=== PATIENT | male | born 1945 | race Caucasian/White ===

== ENCOUNTER → 2016-09-16 | Outpatient (CLI) | payer MEDICARE ==
[~2016-09-16] MED LIST: ANTIVERT25 MG PO; BACTRIM DS 8001 TA1 PO; BACTROBAN CREAM15 GM T; CELEXA20 MG PO; CEPHALEXIN500 M1 PO; CETIRIZINE10 MG PO; CITALOPRAM20 MG PO; CRESTOR10 MG PO; GEMCOR600 MG PO; HYDROCODONE BIT1 T11 PO; KEFLEX500 MG PO; LISINOPRIL2.5 MG PO; LOPID600 M1 PO; METFORMIN1000 MG PO; MULTI VITAMIN/M1 TAB PO; Metformin Hydr500 MG PO; NEURONTIN400 MG PO; NORCO 10-325 T1 EACH PO; NORCO 325 MG-51 TAB PO; NORCO 5-325 TA1 EACH PO; NORTRIPTYLINE10 MG PO; SPIRIVA -- 3018 MCG PO; SPIRIVA18 MCG IH; VICODIN 5/500 505 MG PO; VITA #121000 MCG/M PO; VITAMIN D1000 IU PO; VITAMIN D31000 IU PO
== END | disposition home or self-care (01) ==
LOC: RAD 15:57
DX: J20.9 Acute bronchitis, unspecified (principal); J84.10 Pulmonary fibrosis, unspecified; J98.4 Other disorders of lung; R59.0 Localized enlarged lymph nodes; J34.89 Other specified disorders of nose and nasal sinuses

== ENCOUNTER 2017-06-03 09:02 | Emergency (ER) | payer MEDICARE ==
[~2017-06-03] VITALS: Ht 187.9 cm; Wt 102.1 kg
[2017-06-03] MEDS ORDERED: FLOMAX0.4 MG PO (09:11)
[2017-06-03] MEDS ORDERED: NAPROSYN500 MG PO (09:47)
== END 2017-06-03 10:41 | disposition home or self-care (01) ==
LOC: ED 09:02
DX: M25.561 Pain in right knee (principal); R03.0 Elevated blood-pressure reading, without diagnosis of hypertension; E11.621 Type 2 diabetes mellitus with foot ulcer; Z79.899 Other long term (current) drug therapy

== ENCOUNTER 2018-01-29 14:55 | Inpatient (IN) | payer MEDICARE ==
[~2018-01-29] VITALS: Ht 188 cm; Wt 93.9 kg
--- NOTE | ~2018-01-29 | CON ---
[place], [place] REPORT OF CONSULTATION [id number] UNIT #: [id number] ROOM: 410 DOCTOR: DELMIS BERNARD MD BIRTHDATE: [birth year] DOS: 02/02/2018 REASON FOR CONSULTATION: Neutropenic fever. CHIEF COMPLAINT: Fever, chills, cough post-chemotherapy. 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 The patient has been following with Oncology, Dr. Sibley in [place], [place]. He received the first chemotherapy almost a week ago and has been noticing fevers, chills, generalized weakness, cough soreness of mouth. He also reports abdominal pain, occasional nausea. No urinary complaints, his chemotherapy include carboplatin and Taxotere. PAST MEDICAL HISTORY: Significant for 1. COPD, metastatic squamous cell carcinoma diagnosed in November 2017. 2. Coronary artery disease. 3. Diabetes type 2. 4. Obstructive sleep apnea. PAST SURGICAL HISTORY: Include tonsillectomy, removal of a cyst from tongue, which was benign, right-sided CT-guided aspirate biopsy of the right upper lung on 12/13/2017. SOCIAL HISTORY: The patient is , lives at home. Denies alcohol use, no illicit drug use. No tobacco use early as a teenager, 1.5 pack of cigarettes per day, discontinued 2017. Nonalcoholic. No illicit drug use. FAMILY HISTORY: Father at 72 because of prostate, lung cancer. Mother at 80 because of congestive heart failure. CURRENT MEDICATIONS: Include gemfibrozil, albuterol, Cardizem, atorvastatin, Xarelto, gabapentin, Mucinex, intravenous Levaquin, vancomycin and Zosyn. ALLERGIES: No known drug allergies. PHYSICAL EXAMINATION: VITAL SIGNS: Include temperature 98.6, pulse rate 95, respiratory rate 20, blood pressure 111/57. GENERAL: On examination, the patient is alert, oriented x 3, in moderate distress. HEENT: Atraumatic, normocephalic. Oral exam has oropharyngeal erythema, whitish plaque over the tongue concerning for oral thrush. RESPIRATORY: Air entry bilaterally equal. Coarse crackles bilateral lower lungs. ABDOMEN: Diffuse tenderness, mild. No guarding or rigidity. EXTREMITIES: No pedal edema. NEUROLOGIC: Cranial nerves 2-12 grossly intact. LINES: Include peripheral IV lines. [place], [place] REPORT OF CONSULTATION NAME: STANISLAV BURRELL UNIT #: [id number] ROOM: 410 DOCTOR: DELMIS BERNARD MD BIRTHDATE: [birth year] LABORATORY DATA: WBC count was 1.1 yesterday, which is 0.5 today, neutrophils less than 8800. BUN 22, creatinine 0.69, GFR more than 60. Uric acid 6.4. Liver enzymes within normal limits. Urine legionella and strep pneumo antigen pending. Sputum culture shows moderate PMNs budding yeast. IMAGING: CT chest done on 01/30/2018, development of moderate sized right-sided pleural effusion with accompanied area of atelectasis, consolidation in the right lung. CT chest shows worsening of right lower lung changes definitely more compared to 11/2017. Medications include vancomycin, Levaquin, Zosyn. ASSESSMENT: 1. Newly diagnosed squamous cell carcinoma, status post chemotherapy with carboplatin and Taxotere. 2. Post-chemotherapy neutropenia. 3. Pneumonia. 4. Oral candidiasis. PLAN: 1. At this time, continue vancomycin plus Zosyn. Can discontinue Levaquin if urine legionella antigen testing is negative. 2. Would add oral fluconazole considering extensive thrush. The patient is already getting nystatin suspension, can give Magic mouthwash or a phenol spray to take care of the soreness of mouth. 3. At this time, no need add a mold coverage with Voriconazole. 4. Continue with Neupogen. 5. Follow up blood cultures. 6. Pulmonary also on board. Thank you for your consult. Please call for any questions. Jasmine Bernard MD CM:CONSTR:REPORT OF CONSULTATION 1034 02/03/18 0429 interface
--- NOTE | ~2018-01-29 | PR ---
[place], [place] PROGRESS NOTE NAME: STANISLAV BURRELL [facility] #: [id number] UNIT #: [id number] ROOM: 410 DOCTOR: KALEY COLE MDPEPPER BIRTHDATE: [birth year] DOS: 01/31/2018 SUBJECTIVE: The patient is a patient independently seen and examined with epgp-vs-ktro encounter, history was confirmed. Physical examination was performed. Labs will be assessed and managed today was personally completed. Note done by the medical secretary teacher approved. The patient has been noted comfortable at this time, noted with coughing without any sputum expectoration. There were symptoms of acute chest pain reported. He has a CT scan of the chest completed yesterday without contrast. The patient denies symptoms of fever or chills. Denies symptoms of nausea or vomiting. Denies edema or pain of the lower extremities. There were no symptoms of hemoptysis or hematuria. Remaining systems were reviewed that were noted all negative. PHYSICAL EXAMINATION: VITAL SIGNS: Normal temperature, respiratory rate 18, heart rate 102, blood pressure 110/61. The pulse oxygen saturation recorded on 6 liters high flow nasal cannula 99% saturation. HEENT: Shows head was atraumatic. Eyes, no icterus. CARDIOVASCULAR: S1, S2 audible. LUNGS: The patient showed persistent reduced breath sounds in the right lung. Scattered mild expiratory wheezing was present. There were no crackles. ABDOMEN: Soft, nontender. Bowel sounds present. EXTREMITIES: The patient noted without any acute edema. VISIBLE SKIN: No lesions or rashes. CENTRAL NERVOUS SYSTEM: Cranial nerves 2-12 intact. No focal deficit. LABORATORY DATA: CMP done this morning, BUN 36, creatinine normal, glucose 166. AST 46. LDH 560. CBC was done this morning, WBC count normal, hemoglobin 7.3, hematocrit 24.5, platelet count 200,000. Blood culture, no bacterial growth 938. CT scan of the chest that was done yesterday personally reviewed multiple metastatic lesions noted in the lungs with pulmonary nodule different sized mass lesion in the left side as well as a large mass, pleural based noted in the right upper lobe. In addition to that some loculated fluid noted within the area of atelectasis as well. The mass size and metastatic lesion seems to be progressed as compared to a CT scan of 12/25/2017. Loculated right pleural fluid was also seen. The area of atelectasis and infiltration of the right middle lobe cannot be completely excluded. IMPRESSION: 1. The patient who has been noted with current progression of the metastatic cancer malignancy rather squamous cell cancer has received one dose of chemotherapy agent carboplatin and Taxotere from the primary care physician. 2. Acute severe hypoxic respiratory failure. 3. Acute pleural fluid related to possible malignancy; however, related to acute infection can be excluded. 4. Suspected acute pneumonia, currently treated for gram-positive, gram-negative infections. 5. Severe debility secondary to malignancy. [place], [place] PROGRESS NOTE NAME: STANISLAV BURRELL UNIT #: [id number] ROOM: 410 DOCTOR: KALEY COLE MD,PEPPER BIRTHDATE: [birth year] PLAN OF MANAGEMENT: Continuation of current antibiotic, monitor culture results, so far the cultures of the blood has been noted negative. Sputum culture was ordered, which was pending. Continue other therapy, plan of management. Pleural fluid appeared to be more complicated at this time, not amenable for simple thoracentesis. If any intervention needs to be done, certainly CT-guided aspiration would be recommended if necessary. In the meantime, continue patient's current therapy, plan of management and care. Assessment and management discussed with the patient in detail. PEPPER ROCHE MD CM:PNTRANS [id number] PEPPER COLE MD 02/13/18 0949 interface
--- NOTE | ~2018-01-29 | PR ---
[place], [place] PROGRESS NOTE NAME: STANISLAV BURRELL [facility] #: [id number] UNIT #: [id number] ROOM: 410 DOCTOR: MARLEEN BO DO BIRTHDATE: [birth year] DOS: 01/31/2018 SUBJECTIVE: The patient was seen and examined at the bedside. He complains of generalized pain including chest pain and abdominal pain. He reports experiencing a cough productive for yellow and clear sputum. He is also experiencing wheezing, but states that his shortness of breath feels improved. OBJECTIVE: VITAL SIGNS: Show temperature at 98.3 degrees Fahrenheit, heart rate at 102, respiratory rate at 18, blood pressure at 110/60, pulse oximetry at 99% on 6 liters nasal cannula. GENERAL APPEARANCE: The patient was awake, alert, responsive, cooperative and in no acute distress. HEENT: Head is normocephalic and atraumatic. No lesions or ulcerations were noted to the eyes. NECK: Trachea appears midline. HEART: Rate was tachycardic, rhythm was regular. Positive S1 and S2 sounds were heard. No murmurs, rubs or gallops were appreciated. Bilateral lower extremities were without edema. PULMONARY: Rhonchi were auscultated on exam. No wheezing was appreciated. ABDOMEN: Soft and nondistended. The patient complained of mild tenderness with palpation. Bowel sounds were auscultated. EXTREMITIES: Bilateral lower extremities were without edema. No clubbing, cyanosis or erythema was noted. LABORATORY DATA: CBC from today shows white count at 6.9, hemoglobin at 7.3, hematocrit at 24.5, platelets at 200. Chemistries from today show sodium at 137, potassium at 4.9, chloride at 104, bicarbonate at 25, BUN at 36, creatinine at 1.01, glucose at 166, uric acid 6.4, calcium 8.4, phosphorus 2.0, magnesium 2.2, total bilirubin 0.3, AST 46, ALT 26, alkaline phosphatase 107, LDH 560, albumin 2.1. In terms of microbiology, blood cultures obtained on admission were negative for bacterial growth. Sputum cultures are pending. In terms of imaging studies, chest CT without contrast obtained yesterday, 01/30/2018, showed a moderate sized right pleural effusion with atelectasis or consolidation to the right lung. IMPRESSION: 1. Right lower lobe pneumonia. 2. Hyperkalemia, resolved. 3. Acute renal failure, resolved. 4. Hyperglycemia. 5. Hypophosphatemia. 6. Hypermagnesemia. 7. Transaminitis. 8. Severe protein-calorie malnutrition. 9. Normocytic anemia. 10. Metastatic squamous cell carcinoma of the lung. 11. History of chronic obstructive pulmonary disease. 12. Overweight. [place], [place] PROGRESS [facility] [id number] UNIT #: [id number] ROOM: 410 DOCTOR: MARLEEN BO DO BIRTHDATE: [birth year] PLAN OF MANAGEMENT: The patient is currently on IV Levaquin, IV vancomycin and IV Zosyn as well as guaifenesin and bronchodilator therapy. Sputum cultures are pending. Nephrology service is also following the patient for his acute renal failure and hyperkalemia, which by today's laboratory studies are much improved. Supplemental oxygen should be titrated to maintain pulse oximetry at 92% or greater. Pulmonary medicine will continue to follow. Marleen Bo DO PEPPER ROCHE MD CM:PNTRANS [id number] MARLEEN BO DO 01/31/18 1352 interface
--- NOTE | ~2018-01-29 | PR ---
[place], [place] PROGRESS NOTE NAME: STANISLAV BURRELL UNIT #: [id number] ROOM: 410 DOCTOR: PEPPER ORDONEZ MD BIRTHDATE: [birth year] DOS: 02/02/2018 PULMONARY ADDENDUM PROGRESS NOTE SUBJECTIVE: The patient was independently seen and examined in tiny-op-orta encounter, history was confirmed. Physical examination performed. The labs were reviewed. Note done by the medical supply technician was approved as well. The patient remained in the hospital. The patient noted severe sore throat. He has been started on Nystatin swish and swallow medication yesterday for possibility of acute pharyngitis. The patient was noted symptoms of shortness of breath remains unchanged. He has been considering possibility of hospice care. OBJECTIVE: VITAL SIGNS: Normal temperature, respiratory rate 18, heart rate 96, blood pressure 111/55 this morning. The pulse oxygen saturation of the patient recorded as 99% saturation. HEENT: Examination shows head was atraumatic. Eyes: No icterus. NECK: Supple. CARDIOVASCULAR: S1, S2 is audible. LUNGS: Noted decreased breath sounds in the lungs bilaterally. ABDOMEN: Soft, nontender. Bowel sounds present. EXTREMITIES: Without any acute edema. IMPRESSION: 1. The patient with persistent severe acute hypoxic respiratory failure with acute pneumonia with advanced progressive metastatic cancer. The patient has a squamous cell. 2. The patient with pancytopenia related to chemotherapy, currently treated with appropriate medications. LABORATORY DATA: CBC today noted WBC count 0.5, hemoglobin 8.1, and platelet count 124,000. PLAN OF MANAGEMENT: The patient will be started on Cepacol lozenges. Continue antibiotics and bronchodilator therapy. Monitor respiratory status closely. Overall prognosis of the patient remains extremely poor at this time. Other support with hospice discussed with the patient until the patient asks for that. [place], [place] PROGRESS NOTE NAME: STANISLAV BURRELL UNIT #: [id number] ROOM: 410 DOCTOR: PEPPER ORDONEZ MD BIRTHDATE: [birth year] PEPPER ROCHE MD CM:PNTRANS [phone] PEPPER COLE MD 02/13/18 0952 interface
--- NOTE | ~2018-01-29 | PR ---
[place], [place] PROGRESS NOTE NAME: STANISLAV BURRELL UNIT #: [id number] ROOM: 410 DOCTOR: PEPPER ORDONEZ MD BIRTHDATE: [birth year] DOS: 02/03/2018 SUBJECTIVE: The patient was noted comfortable at this time. Stated reduction of the sore throat. He has been noted coughing with purulent sputum expectoration for the patient. Denies symptoms of hemoptysis. There was no chest pain. Pain of the patient which has been noted previously noted well controlled with current pain medical management. The patient remains on neutropenic isolation precautions. OBJECTIVE: VITAL SIGNS: Normal temperature, respiratory rate 19, heart rate 98, blood pressure 109/55. Pulse oxygen saturation on 6 liters nasal canula was 96% saturation. HEENT: Examination shows head was atraumatic. Eyes nonicterus. NECK: Supple. CARDIOVASCULAR: S1, S2 is audible. LUNGS: The patient was noted with decreased breath sounds in the right lung. Scattered crackles. There was no wheezing. ABDOMEN: Soft and nontender. LABORATORY DATA: The BMP this morning was noted normal BUN and creatinine. CBC: WBC count increased to 0.9 with hemoglobin 9.3, platelet count 106,000. Sputum culture previously noted with isolation of yeast. IMPRESSION: 1. The patient who has been currently noted stable at this time, resolving pancytopenia for this patient. Chemotherapy, history of advanced squamous cell cancer of the lung with just 1 chemotherapy administered over a week ago. 2. Acute pneumonia. 3. Sore throat for the patient acute pharyngitis. PLAN OF MANAGEMENT: Continue nystatin swish and swallow, bronchodilators, oxygen supplementation and the antibiotics. Antibiotics of the patient will be adjusted based on the current culture results with continuation of the Zosyn. Discontinue the Levaquin and vancomycin. [place], [place] PROGRESS NOTE NAME: STANISLAV BURRELL UNIT #: [id number] ROOM: 410 DOCTOR: PEPPER ORDONEZ MD BIRTHDATE: [birth year] PEPPER ROCHE MD CM:PNTRANS [id number] PEPPER COLE MD 02/13/18 0953 interface
--- NOTE | ~2018-01-29 | PR ---
[place], [place] PROGRESS NOTE NAME: STANISLAV BURRELL [facility] #: [id number] UNIT #: [id number] ROOM: 410 DOCTOR: MARLEEN BO DO BIRTHDATE: [birth year] DOS: 02/02/2018 SUBJECTIVE: The patient was seen and examined. He was sitting in his chair near the bedside. He continues to endorse numerous complaints which include shortness of breath, cough productive for brown sputum, wheezing, intolerance to cold, chest pain, abdominal pain. He also reports experiencing loose diarrhea and this has been occurring since admission. OBJECTIVE: VITAL SIGNS: Show temperature at 98.6 degrees Fahrenheit, heart rate at 94, respiratory rate at 20, most recent blood pressure at 111/57, pulse oximetry was 100% on high flow nasal cannula at 6 liters. GENERAL APPEARANCE: The patient is awake, alert, responsive, cooperative and in no acute distress. HEENT: Head is normocephalic and atraumatic. No lesions or ulcerations were noted to eyes. NECK: Trachea appears midline. HEART: Regular rate and rhythm are noted. Positive S1 and S2 sounds are heard. No murmurs, rubs or gallops are appreciated. The bilateral lower extremities were without edema. PULMONARY: Lungs with decreased breath sounds. Wheezing and rhonchi were heard on exam. No rales were appreciated. ABDOMEN: Soft and nondistended. There is no tenderness on palpation. Bowel sounds were present. EXTREMITIES: The bilateral lower extremities were without edema. No clubbing, cyanosis or erythema was noted. LABORATORY DATA: CBC from today shows white count at 0.5, hemoglobin at 8.1, hematocrit at 27.1, platelets at 124. Chemistries from today shows sodium at 139, potassium at 4.0, chloride at 105, bicarbonate at 23, BUN at 22, creatinine at 0.69, glucose at 138, calcium at 7.8, total bilirubin at 0.3, AST at 21, ALT at 23, alkaline phosphatase at 97, albumin at 1.9. In terms of serologies, urinary legionella antigen and urinary strep pneumo antigen are pending. In terms of microbiology, no changes are noted since yesterday 02/01/2018. IMPRESSION: 1. Suspected right lower lobe pneumonia. 2. Pancytopenia. 3. Overweight. 4. Hyperglycemia. 5. Severe protein-calorie malnutrition. 6. History of chronic obstructive pulmonary disease. 7. Generalized debility secondary to metastatic squamous cell carcinoma of the lungs. PLAN OF MANAGEMENT: The patient is currently on triple antibiotic therapy with IV vancomycin, IV Levaquin and IV Zosyn. He is also on guaifenesin and bronchodilator therapy. He has Cepacol lozenges available for his sore throat. The Infectious Disease Service has been also consulted for this patient's neutropenia for which he is on Granix currently. Infectious Disease has started [place], [place] PROGRESS NOTE NAME: STANISLAV BURRELL UNIT #: [id number] ROOM: 410 DOCTOR: MARLEEN BO DO BIRTHDATE: [birth year] the patient on fluconazole. The Cardiology Service is also following the patient due to atrial fibrillation with rapid ventricular response and his dose of diltiazem was increased. An evaluation by hospice or palliative care in this patient would certainly be appropriate. Pulmonary medicine will continue to follow. Marleen Bo, PEPPER ROCHE MD CM:ELIZABETH [id number] MARLEEN BO DO 02/02/18 1103 interface
--- NOTE | ~2018-01-29 | PR ---
[place], [place] PROGRESS NOTE NAME: STANISLAV BURRELL [facility] #: [id number] UNIT #: [id number] ROOM: 410 DOCTOR: MARLEEN BO DO BIRTHDATE: [birth year] DOS: 02/01/2018 SUBJECTIVE: The patient was seen and examined at the bedside. He complains of a sore throat. He states that his shortness of breath is improved somewhat. He continues to have a cough productive of brown mucus. He continues to complain of abdominal pain. Reportedly, the patient is interested in home hospice. OBJECTIVE: VITAL SIGNS: Show temperature at 97.8 degrees Fahrenheit, heart rate 94, respiratory rate 18, blood pressure 115/58, pulse oximetry 100% via 7 liters high flow O2. GENERAL APPEARANCE: The patient is awake, alert, responsive, cooperative and in no acute distress. HEENT: Head is normocephalic and atraumatic. No lesions or ulcerations were noted to the eyes. NECK: Trachea appears midline. HEART: Regular rate and rhythm was noted. Positive S1 and S2 sounds were heard. No murmurs, rubs or gallops were appreciated. LUNGS: Bilateral lower extremities were without edema. PULMONARY: Trace wheezing was heard on exam. No rhonchi or rales were appreciated. The patient was with an occasional cough. ABDOMEN: Soft and nondistended. The patient complained of mild tenderness with palpation. Bowel sounds were auscultated. EXTREMITIES: Bilateral lower extremities were without edema. No clubbing, cyanosis or erythema was noted. LABORATORY DATA: CBC from today shows white count at 1.1, hemoglobin 8.1, hematocrit 26.3, platelets 162. Chemistries from today shows sodium at 138, potassium of 4.3, chloride 103, bicarbonate 25, BUN 24, creatinine 0.73, glucose 152, calcium 8.1, phosphorus 1.9, albumin 2.0. SEROLOGIES: Urinary Legionella antigen and urinary strep pneumo antigen are both pending. MICROBIOLOGY: Again, blood cultures on admission were negative for bacterial growth. Preliminary sputum cultures show growth of moderate yeast. IMPRESSION: 1. Suspected right lower lobe pneumonia. 2. Neutropenia. 3. Anemia with hemoglobin at 8.1, status post transfusion of 1 unit packed red blood cells yesterday. 4. Lymphopenia. 5. Hyperglycemia. 6. Hypophosphatemia. 7. Severe protein-calorie malnutrition. 8. Oral thrush. 9. Overweight. 10. Metastatic squamous cell carcinoma of the lung. 11. Chronic obstructive pulmonary disease. [place], [place] PROGRESS NOTE NAME: STANISLAV BURRELL [facility] #: [id number] UNIT #: [id number] ROOM: [facility] DOCTOR: MARLEEN BO DO BIRTHDATE: [birth year] PLAN OF MANAGEMENT: The patient is currently on IV Levaquin, guaifenesin and bronchodilator therapy. The patient was started on Neupogen due to neutropenia. Nystatin swish and swallow was also ordered due to the patient's thrush. The patient is agreeable to undergoing a bronchoscopy, which will be performed tomorrow. He should be n.p.o. after midnight tonight. The patient's supplemental oxygen should be titrated to maintain pulse oximetry at 92% or greater. Marleen Bo DO PEPPER ROCHE MD CM:PNMIKHAIL [id number] MARLEEN BO DO 02/01/18 1207 interface
--- NOTE | ~2018-01-29 | PR ---
[place], [place] PROGRESS NOTE NAME: STANISLAV BURRELL UNIT #: [id number] ROOM: 410 DOCTOR: ALLYSON GARZA MD BIRTHDATE: [birth year] DOS: 02/02/2018 SUBJECTIVE: The patient was seen today at his bedside, 02/02/2018, for followup of his paroxysmal atrial fibrillation with rapid ventricular response. He is sitting up at his bedside, but looks very uncomfortable. He has a very persistent and severe cough. He does seem dyspneic at rest and does have pain with coughing. Review of his monitor shows that he has converted back to sinus rhythm overnight with a regular rhythm now. PHYSICAL EXAMINATION: VITAL SIGNS: His pulse is 94 and regular, blood pressure is 111/57. He has a temperature of 98.6. His weight is 93.9 kilograms with a body mass index 26.6. NECK: Supple. He has no jugular distention. Carotids are full. LUNGS: Respirations are labored. He has scattered crackles bilaterally. HEART: Has a regular rhythm with an S4 gallop, but no S3 or murmur. ABDOMEN: Soft. EXTREMITIES: Showed no edema. IMPRESSION: 1. Atrial fibrillation with rapid ventricular response. The patient has converted spontaneously to sinus rhythm. 2. Coronary artery disease with recent non-ST elevation myocardial infarction, being managed conservatively. 3. Recent diagnosis of squamous cell lung cancer with bilateral lung metastases. Thus far, his lung cancer is not responding to chemotherapy and his prognosis does appear to be poor. 4. Type 2 diabetes mellitus. 5. History of hypertension. PLAN: We will continue his current dose of diltiazem and continue to manage him conservatively for his heart disease. We will follow him with his other physicians, but no other cardiac workup is planned at this time. I thank the hospitalist physicians for asking our advice regarding his care. [place], [place] PROGRESS NOTE NAME: STANISLAV BURRELL UNIT #: [id number] ROOM: 410 DOCTOR: ALLYSON GARZA MD BIRTHDATE: [birth year] ALLYSON GARZA MD CM:PNTRANS [id number] ALLYSON GARZA MD 02/02/18 1243 interface
--- NOTE | ~2018-01-29 | PR ---
[place], [place] PROGRESS NOTE NAME: STANISLAV BURRELL [facility] #: [id number] UNIT #: [id number] ROOM: 410 DOCTOR: KALEY COLE MDPEPPER BIRTHDATE: [birth year] DOS: 02/01/2018 PULMONARY ADDENDUM PROGRESS NOTE The patient independently seen and examined with [id number] encounter, history was confirmed, physical examination was performed and labs were reviewed for the patient for today's note. Assessment and management personally completed. Note done by the medical supply technician was approved. The patient has been noted comfortable at this time, sitting on the chair, was still noted with general weakness and fatigue. The cough has been noted for the patient with intermittent purulent sputum expectoration, however, small quantity. Denies symptoms of chest pain. Denies symptoms of fever or chills. Denies symptoms of nausea, vomiting, diarrhea, abdominal pain, edema or pain of the lower extremities. Remaining system were reviewed, they were noted all negative. PHYSICAL EXAMINATION: VITAL SIGNS: Reviewed as a normal temperature, respiratory rate 19, heart rate 86, blood pressure 127/53, pulse oxygen saturation of the patient on high flow nasal cannula 94% saturation. HEENT: Examination shows head was atraumatic. Eyes, nonicterus. CARDIOVASCULAR: S1, S2 audible. LUNGS: The patient noted moderate decreased breath sounds bilaterally, scattered crackles of the right lung. ABDOMEN: Soft, moderately obese. EXTREMITIES: Without acute edema. VISIBLE SKIN: No lesions or rashes. MUSCULOSKELETAL: Without any acute deformities. CENTRAL NERVOUS SYSTEM: Cranial nerves 2-12 intact. LABORATORY DATA: CBC today: WBC count 1.1, hemoglobin 8.1, hematocrit 26.3, platelet count was normal. Renal function panel today, BUN normal, creatinine normal, glucose 153. The phosphorus 1.9. The culture of the sputum for the patient from yesterday, moderate growth of yeast. The Gram stain from yesterday, moderate white blood cells, few epithelial cells, few budding yeast. IMPRESSION: 1. The patient with extensive metastatic malignancy with squamous cell cancer worsening noted since admission 12/2017, has received one chemotherapy. 2. The patient with anemia and severe neutropenia, absolute neutropenia for the patient is also resulting from the chemotherapy effects. 3. The patient has general weakness and fatigue, multifactorial. 4. The patient with chronic obstructive pulmonary disease. 5. Acute on chronic hypoxic respiratory failure as well. PLAN OF THERAPY: At this time, the patient will be continued on the current antibiotic, broad spectrum. He will be started on Neupogen as well. The patient was complaining of some sore throat. The patient was started empirically on the Nystatin swish and swallow. Continue monitoring the patient with neutropenia. Respiratory, aspiration precaution, neutropenia. Other supportive therapy, plan of management, care plan for the patient as well. [place], [place] PROGRESS NOTE NAME: STANISLAV BURRELL UNIT #: [id number] ROOM: 410 DOCTOR: KALEY COLE MD,PEPPER BIRTHDATE: [birth year] Other additional treatment changes will be made for the patient based on progression of the illness. Usual care, other therapy, plan of care. Assessment and management discussed with the patient's primary care attending today, Lorena Fu. The patient was opted for possible consideration for the hospice services which may be appropriate for this patient at the present time with the progressive malignancy, which is noted extensive with very poor physical performance. However, the decision to be made by the patient, hospice consultation or palliative care consultation certainly could be obtained. PEPPER ROCHE MD CM:PNTRANS [id number] [id number] PEPPER COLE MD 02/13/18 0951 interface
--- NOTE | ~2018-01-29 | EKG ---
[place], [place] ELECTROCARDIOGRAM REPORT NAME: STANISLAV BURRELL UNIT #: [id number] ROOM: DOCTOR: TYRON DRAFT REPORT BIRTHDATE: [birth year] [facility] Test Date: 2018-01-29 Test Time: 15:30:08 Pat Name: STANISLAV BURRELL Department: Room: Gender: Informatics Application Analyst: CHENG PAZB: 1945 Requested By: EVANGELINA MONZON Order Number: [id number] Reading MD: Measurements Intervals [place] Rate: 74 P: -9 ND: 174 QRS: 29 QRSD: 100 T: 243 QT: 363 QTc: 403 Interpretive Statements Sinus rhythm Probable left atrial enlargement Borderline repolarization abnormality Compared to ECG 12/27/2017 19:56:41 Sinus tachycardia no longer present Atrial premature complex(es) no longer present Possible ischemia no longer present CM:EKGRPT:ELECTROCARDIOGRAM REPORT 1530 1232 EVANGELINA PETERSON DRAFT REPORT EVANGELINA MONZON DO
--- NOTE | ~2018-01-29 | CON ---
[place], [place] REPORT OF CONSULTATION NAME: STANISLAV BURRELL [facility] #: [id number] UNIT #: [id number] ROOM: 410 DOCTOR: PEPPER ORDONEZ MD BIRTHDATE: [birth year] DOS: 01/30/2018 PULMONARY CONSULTATION EVALUATION AND MANAGEMENT CONSULTATION REQUESTED BY: Hospitalist Services. REASON FOR CONSULTATION: Assessment of acute pneumonia. HISTORY OF PRESENT ILLNESS: A 72-year-old white male patient known to me, has been admitted to the hospital in 11/2017 with diagnosis of squamous cell lung cancer, which are noted metastatic was established. He has been seen by Medical Oncology, Dr. Sibley in [place], [place]. He received the first chemotherapy in his office a few days ago. The patient stated that he did well with the chemotherapy. He came into the hospital with reported symptoms of having increased shortness of breath for the past couple of days. The shortness of breath has been noted gradually worsen associated with generalized weakness and fatigue. He does have symptoms of cough, with small amount of sputum expectoration reported. There were no symptoms of hemoptysis. Denies symptoms of wheezing. He was reporting symptoms of chest pain mild to moderate in the mid anterior chest wall stated radiating to the back of the right chest. The patient has been currently also assessed and treated for the acute pneumonia. The patient received carboplatin and Taxotere. REVIEW OF SYSTEMS: CONSTITUTIONAL: Fatigue and tiredness noted without any symptoms of fever or chills. EYES: Denies any burning, redness, or tenderness. EARS, NOSE, THROAT SYMPTOMS: Denies sore throat, hoarseness, otalgia, postnasal drainage or epistaxis. CARDIOVASCULAR: Denies angina pain, edema, pain of the lower extremities. GASTROINTESTINAL: Denies dysphagia, nausea, vomiting, diarrhea, abdominal pain, hematemesis, melena, or hematochezia. SKIN: Denied lesions or rashes. CENTRAL NERVOUS SYSTEM: No dizziness, headache, diplopia, syncopal episodes. Generalized weakness and fatigue were reported. Remaining systems were reviewed, they were noted all negative. PAST MEDICAL HISTORY: 1. COPD. 2. Metastatic squamous cell cancer diagnosed in 11/2017. 3. Coronary artery disease. 4. Type 2 diabetes mellitus. 5. Mild obstructive sleep apnea disorder, untreated. PAST SURGICAL HISTORY: 1. Tonsillectomy. 2. Removal of a cyst from the tongue that was described to be benign. 3. Right-sided CT-guided needle aspirate biopsy, right upper lung mass on 12/13/2017. [place], [place] REPORT OF CONSULTATION NAME: STANISLAV BURRELL [facility] #: [id number] UNIT #: [id number] ROOM: [facility] DOCTOR: PEPPER ORDONEZ MD BIRTHDATE: [birth year] SOCIAL HISTORY: The patient is lived at home. Denies history of alcohol use, illicit drug use. Tobacco use noted as early teenager up to 1.5 pack of cigarettes per day, discontinued in 2018. There was no history of alcohol use or any illicit drugs. FAMILY HISTORY: Noted with the father at 72 years from complication of prostate and lung cancer. Mother at the age of 8080 years old from complication of congestive heart failure. CURRENT MEDICATIONS: Administered the patient noted use of gemfibrozil, albuterol sulfate nebulizer, Cardizem-CD, atorvastatin, Xarelto 20 mg, gabapentin, Mucinex, intravenous Levaquin, vancomycin and IV Zosyn. ALLERGIES: The patient noted as no known drug allergies. PHYSICAL EXAMINATION: GENERAL: This is a 72-year-old white male patient currently noted sitting on the side of bed without any acute distress. Height of 6 feet 2 inches, weight of 207 pounds, BMI 26. VITAL SIGNS: Temperature as normal since admission, respiratory rate of 16-20, heart rate of 84-76, blood pressure 117/45-109/39. Pulse oxygen saturation of the patient noted as 94% on 4 liters nasal canula, previously 4 liters, 88% saturation. HEENT: The patient was noted alopecia. The neck was supple. Head was atraumatic. Oral mucosa moist, without any lesions. CARDIOVASCULAR: S1, S2 is audible. LUNGS: The patient noted [id number] decreased breath sounds bilaterally with scattered mild expiratory wheezing, no crackles. ABDOMEN: Soft, nontender. Bowel sounds present. EXTREMITIES: Without any acute edema. CENTRAL NERVOUS SYSTEM: Cranial nerves 2-12 intact. No focal deficit. MUSCULOSKELETAL: Without any acute deformities. LABORATORY DATA: Lactic acid on 01/29/2018 was noted as 3.5. PT/PTT done on 01/29/2018 noted as PT/INR 1.2, PTT 30. CMP that was done on 01/29/2018 BUN 51, creatinine 2.53, glucose 135. Sodium 131, potassium of 5.8. The CBC that was done on 01/29/2018, WBC count 13.1, hemoglobin 7.3, hematocrit 24.4, platelet count 133,000. BMP done on 01/29/2018, BUN 55, creatinine 2.23. Sodium 138, potassium elevated at 5.6. CBC of this morning, WBC count 15.1, hemoglobin 7.7, hematocrit 25.3, platelet count normal. BMP that was done this morning, BUN 45, creatinine 1.59. Glucose 198. Potassium 6.5, CO2 of 34. IMAGING STUDIES: The chest x-ray 1 view which was done in the Emergency Room was personally reviewed. The chest x-ray noted a large mass lesion pleural based in the right upper lobe appeared to be larger compared to previous chest x-ray of consolidation and other mass lesion in the right lower lobe would be considered. The patient was also suspected some nodular density in the left lung as well as retrocardiac area of consolidation, infiltration. [place], [place] REPORT OF CONSULTATION NAME: STANISLAV BURRELL UNIT #: [id number] ROOM: 410 DOCTOR: ISHA ORDONEZ MDM BIRTHDATE: [birth year] IMPRESSION: 1. The patient will be currently known with metastatic squamous cell cancer, presented to the hospital with respiratory symptom with patient increased coughing, sputum expectoration with suspected acute pneumonia. 2. Metastatic lung in this patient with worsening cannot be completely excluded. 3. The patient with acute hypoxic respiratory failure secondary to all of the above. 4. Lactic acidosis noted on admission, corrected later on with suspected sepsis and acute pneumonia. 5. The patient with chronic obstructive pulmonary disease with bronchospasm noted with mild expiratory wheezing on physical exam as well. 6. History of type 2 diabetes mellitus. 7. Chronic anticoagulation with Xarelto was also noted. 8. Mild elevation in INR related to the use of Xarelto. 9. Component for hyperkalemia related to acute kidney injury. PLAN OF THERAPY: Sputum for Gram stain and culture. Monitor culture results of the blood. CT scan of the chest will be obtained for most definitive assessment progression of malignancy and/or other abnormalities for this patient at this time. Other supportive therapy, plan of management. The patient noted with quite broad spectrum intravenous antibiotic. The antibiotic broad spectrum will be decreased based on the culture results. The patient was also noted with acute kidney injury could be multifactorial, but related to acute sepsis with end-organ damage would be considered. Continue plan of management. Assessment and management of the patient's hyperkalemia. Consider obtaining a consultation from the Nephrology Service for appropriate workup and management. CT scan of the chest will be obtained without contrast because of the current acute injury. Overall prognosis is guarded. Titrate oxygen supplementation to maintain pulse ox 92% greater bronchospasm. The patient will be treated just simply with the bronchodilators in case of worsening of the wheezing, certainly steroids could be added to the treatment. Thanks for allowing me to participate in the care of this patient. PEPPER ROCHE MD CM:CONSTR:REPORT OF CONSULTATION 1055 02/13/18 0949 interface
--- NOTE | ~2018-01-29 | CON ---
[place], [place] REPORT OF CONSULTATION NAME: STANISLAV BURRELL [facility] #: [id number] UNIT #: [id number] ROOM: 410 DOCTOR: ALLYSON GARZA MD BIRTHDATE: [birth year] DOS: 02/01/2018 REASON FOR CONSULTATION: Atrial fibrillation with rapid ventricular response. HISTORY OF PRESENT ILLNESS: The patient was seen at his bedside at the [facility] on 02/01/2018 for evaluation of atrial fibrillation with rapid ventricular response. He is an unfortunate 72-year-old man who was diagnosed as having shortness of breath and diffuse chest pain, which turned out to be due to squamous cell cancer of the lung in 11/2017. While hospitalized, he was noted to have episodes of atrial fibrillation with rapid ventricular response and was placed on diltiazem with reasonable control of his rates. He did convert spontaneously to sinus rhythm. It was felt that his chest pains were due to the cancer with bilateral lung metastases and chest wall invasion. The patient was treated with chemotherapy, but reports from his animal nurse indicate that his disease has progressed nonetheless. He was hospitalized on this occasion with generalized malaise, fatigue and weakness. He also noticed that he was getting more short of breath. He was neutropenic. His EKG and monitor do show atrial fibrillation with a rapid ventricular response and we were asked to assist in his management. PAST MEDICAL HISTORY: Includes 1. 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 2. Chest wall pain. 3. Chronic obstructive pulmonary disease. 4. Type 2 diabetes mellitus with diabetic foot ulcer. 5. Essential hypertension. 6. History of tonsillectomy. 7. Non-ST elevation myocardial infarction documented during hospitalization late November 2017. The patient treated conservatively. FAMILY HISTORY: The patient's father of lung cancer. The patient's mother of congestive heart failure. The patient's sister has heart disease. REVIEW OF SYSTEMS: The patient denies diplopia or loss of vision. He denies focal weakness, but feels generally weak. He denies nausea or vomiting, but has some anorexia. He has not had any hemoptysis or hematemesis. He does have dyspnea with minor exertion. He denies any blood in his stools or urine. Denies any change in bowel or bladder habits. He denies any recent leg swelling. He denies fevers, chills or sweats. He denies any skin rashes. He denies heat or cold intolerance. The remainder of the review of systems is negative except as above. MEDICATIONS: Prior to admission, Dulera 200/5 two puffs b.i.d., oxygen 3 liters by continuous nasal cannula, atorvastatin 20 mg daily, diltiazem CD 120 mg daily, gemfibrozil 600 mg b.i.d., glipizide 15 mg daily, lisinopril 2.5 mg daily, metformin 1000 mg b.i.d. and Xarelto 20 mg daily. ALLERGIES: The patient has no known drug allergies. [place], [place] REPORT OF CONSULTATION NAME: STANISLAV BURRELL UNIT #: [id number] ROOM: 410 DOCTOR: ALLYSON GARZA MD BIRTHDATE: [birth year] SOCIAL HISTORY: The patient does not use illicit drugs. He was a smoker, but quit in 06/2017. He drinks alcohol rarely. PHYSICAL EXAMINATION: GENERAL: The patient is a well-nourished white male who is awake, alert and oriented. He does look tired and ill. VITAL SIGNS: Pulse is 114 and irregularly irregular. Blood pressure is 90/62, he is afebrile. He weighs 93.9 kg and has a body mass index 26.6. HEENT: Normocephalic and atraumatic. Extraocular muscles are intact. Sclerae are clear. Pupils equal, round and react to light. The oral mucosa is moist. Tongue is midline. NECK: Supple. He has no jugular distention. Carotids are full. There are no bruits. He has no neck or supraclavicular masses, no thyromegaly. LUNGS: Respirations are unlabored. His chest has decreased breath sounds at the bases. He does have few scattered crackles in the lower lungs. He has no presacral edema or chest wall tenderness. CARDIOVASCULAR: His heart has an irregularly irregular rhythm without murmurs or gallops. The PMI is not displaced. There is no precordial heave, lift or thrill. ABDOMEN: Soft and normally active without masses, organomegaly or bruits. EXTREMITIES: Showed no edema. Peripheral pulses are diminished in the feet. IMPRESSIONS: 1. Atrial fibrillation with rapid ventricular response. 2. Coronary artery disease with recent non-ST elevation myocardial infarction, managed conservatively. 3. Recent diagnosis of squamous cell cancer of the lung with bilateral lung metastases. It does appear as though his lung cancer is not responding to chemotherapy. 4. Type 2 diabetes mellitus. 5. History of hypertension. PLAN: We will continue a conservative management strategy for his heart disease. I will increase his oral diltiazem to see if we can control his heart rate better that way. No other cardiac workup is planned at this time, but we will follow him with his other physicians. I thank the hospitalist physicians for asking our advice regarding his care. [place], [place] REPORT OF CONSULTATION NAME: STANISLAV BURRELL [facility] UNIT #: [id number] ROOM: 410 DOCTOR: ALLYSON GARZA MD BIRTHDATE: [birth year] ALLYSON GARZA MD CM:CONSTR:REPORT OF CONSULTATION 31 02/02/18 042 interface
--- NOTE | ~2018-01-29 | EKG ---
[place], [place] ELECTROCARDIOGRAM REPORT NAME: STANISLAV BURRELL UNIT #: [id number] ROOM: 410 DOCTOR: SAMMIEANY DRAFT REPORT BIRTHDATE: [birth year] [facility] Test Date: 2018-02-01 Test Time: 16:43:20 Pat Name: STANISLAV BURRELL Department: Room: 410 1 Gender: M Inventory Worker: Tashia Green : 1945 Requested By: ADAM VOSS Order Number: [id number] Reading MD: Dewayne Medina MD Measurements Intervals [place] Rate: 152 P: MT: QRS: 59 QRSD: 94 T: 248 QT: 283 QTc: 450 Interpretive Statements Atrial fibrillation with rapid V-rate Repolarization abnormality, prob rate related Compared to ECG 12/27/2017 19:56:41 Sinus tachycardia no longer present Atrial premature complex(es) no longer present Electronically Signed On 02-01-2018 19:52:22 PDT by Dewayne Medina MD CM:EKGRPT:ELECTROCARDIOGRAM REPORT 1643 51 ADAM VSOS EPIPHANY DRAFT REPORT ADAM VOSS
--- NOTE | ~2018-01-29 | PR ---
[place], [place] PROGRESS NOTE NAME: STANISLAV BURRELL UNIT #: [id number] ROOM: 410 DOCTOR: ALLYSON GARZA MD BIRTHDATE: [birth year] DOS: 02/03/2018 CARDIOLOGY PROGRESS NOTE SUBJECTIVE: The patient was seen at his bedside today 02/03/2018 for followup of his paroxysmal atrial fibrillation with rapid ventricular response in the setting of metastatic squamous cell cancer of the lungs. He is sitting up at his bedside, but remains very uncomfortable. He has a persistent severe cough and neck and chest pains related to his metastatic disease. Review of his monitor shows that he has stayed in sinus rhythm since he converted yesterday. PHYSICAL EXAMINATION: VITAL SIGNS: His pulse is 98 and regular, blood pressure is 129/55. He is afebrile. He weighs 93.9 kg and has a body mass index of 26.6. NECK: Supple. He has no jugular distention. Carotids are full. LUNGS: Respirations are slightly labored at rest. He does have decreased breath sounds bilaterally. HEART: Has a regular rhythm with S4 gallop, but no S3 or murmur. ABDOMEN: Soft and normally active. EXTREMITIES: Showed no edema. LABORATORY DATA: Monitor shows sinus rhythm. IMPRESSION: 1. Atrial fibrillation with rapid ventricular response. The patient has converted spontaneously to sinus rhythm. 2. Coronary artery disease with recent [id number] myocardial infarction, which is being managed conservatively. 3. Recent diagnosis of squamous cell lung cancer with bilateral lung metastases. Reports indicate that his lung cancer is not responding to chemotherapy and his prognosis appears to be poor. 4. Type 2 diabetes mellitus. 5. History of hypertension. PLAN: We will continue his current dose of diltiazem and we will continue to manage him conservatively for his coronary artery disease. At this point, Cardiology has nothing else to offer in his care. We will sign off, but remain available to assist in his care at his physician's request. I thank the hospitalist physicians for asking our advice regarding his management. [place], [place] PROGRESS NOTE NAME: STANISLAV BURRELL UNIT #: [id number] ROOM: 410 DOCTOR: ALLYSON GARZA MD BIRTHDATE: [birth year] ALLYSON GARZA MD CM:PNTRANS 1247 1507 ALLYSON GARZA MD 02/03/18 1505 interface
--- NOTE | ~2018-01-29 | EKG ---
[place], [place] ELECTROCARDIOGRAM REPORT NAME: STANISLAV BURRELL UNIT #: [id number] ROOM: 410 DOCTOR: TYRON DRAFT REPORT BIRTHDATE: [birth year] [facility] Test Date: 2018-01-30 Test Time: 06:59:15 Pat Name: STANISLAV BURRELL Department: Room: 410 1 Gender: M Circuits Engineer: : 1945 Requested By: JOSEPH ELISE Order Number: [id number] Reading MD: Measurements Intervals [place] Rate: 93 P: 4 TX: 158 QRS: 17 QRSD: 101 T: 215 QT: 311 QTc: 387 Interpretive Statements Sinus rhythm Repol abnrm suggests ischemia, lateral leads Compared to ECG 12/27/2017 19:56:41 Sinus tachycardia no longer present Atrial premature complex(es) no longer present Possible ischemia still present CM:EKGRPT:ELECTROCARDIOGRAM REPORT 0659 0400 JOSEPH PETERSON DRAFT REPORT JOSEPH ELISE DO
[~2018-01-29 14:55] MED LIST changes: +ALBUTEROL2.5 MG/0.5 INH; +AZITHROMYCIN500 M2 PO; +DILTIAZEM 24HR120 MG PO; +DULERA 200 MCG8.8 GM INH; +FLOMAX0.4 MG PO; +GLIPIZIDE5 MG PO; +GLUCOTROL10 MG PO; +LIPITOR20 MG PO; +MOBIC15 MG PO; +NAPROSYN500 MG PO; +OXYGEN NAS; +PREDNISONE10 MG PO; +XARE20MG PO
[2018-01-29 14:56] VITALS: BP 102/62
[2018-01-29 15:41] LABS: HEMATOCRIT 24.4 % (42.0-52.0); HEMOGLOBIN 7.3 g/dl (14.0-18.0); MEAN CELL VOLUME 81.9 fl (80.0-94.0); MEAN CORPUSCULAR HGB 24.5 pg (27.0-31.0); MEAN CORPUSCULAR HGB CONC 29.9 g/dl (33.0-37.0); MEAN PLATELET VOLUME 11.4 fl (9.6-12.3); PLATELET COUNT AUTOMATED 133 10*3/uL (130-400); RED BLOOD COUNT 2.98 10*6/uL (4.50-5.90); RED CELL DISTRI WIDTH 14.9 % (0-14.5); WHITE BLOOD COUNT 13.4 10*3/uL (4.8-10.8)
[2018-01-29 15:55] LABS: ACT PARTIAL THROMBO TIME 34.1 SECONDS (20.8-31.5); INTERNATIONAL NORM RATIO 1.2 (2.0-3.5)
[2018-01-29 15:59] LABS: ALBUMIN 2.3 gm/dl (3.1-4.5); ALKALINE PHOSPHATASE 101 U/L (45-117); BUN 51 mg/dl (7-24); CHLORIDE 97 mmol/L (98-107); CREATININE 2.53 mg/dL (0.70-1.30); LIPASE 84 U/L (73-393); POTASSIUM 5.8 mmol/L (3.5-5.1); SGOT/AST 44 IU/L (3-35); SGPT/ALT 18 U/L (12-78); SODIUM 131 mmol/L (136-145); TOTAL PROTEIN 7.7 gm/dL (6.4-8.2)
[2018-01-29 16:03] LABS: TROPONIN I < 0.015 ng/ml (<0.045)
[2018-01-29 16:07] LABS: BASOPHILS 1 % (0-1); TOTAL CELLS COUNTED 100 #CELLS
[2018-01-29 16:08] LABS: PLATELET SUFFICIENCY NORMAL (NORMAL)
[2018-01-29] MEDS ORDERED: GLUCOTROL10 MG PO (18:13)
[2018-01-29 18:15] VITALS: BP 102/62
[2018-01-29] MEDS ORDERED: GLUCOTROL5 MG PO (18:16)
[2018-01-29] MEDS ORDERED: NEURONTIN300 MG PO (18:17)
[2018-01-29 20:00] VITALS: BP 109/39
[2018-01-29 22:53] LABS: CREATININE 2.23 mg/dL (0.70-1.30); POTASSIUM 5.8 mmol/L (3.5-5.1)
[2018-01-30] VITALS: BP 117/45
[2018-01-30 00:16] LABS: BILIRUBIN NEGATIVE (NEGATIVE); BLOOD NEGATIVE (NEGATIVE); CLARITY CLEAR (CLEAR); COLOR YELLOW (YELLOW); GLUCOSE NEGATIVE (NEGATIVE); KETONE NEGATIVE (NEGATIVE); LEUKO ESTERASE NEGATIVE (NEGATIVE); NITRITE NEGATIVE (NEGATIVE); SPECIFIC GRAVITY 1.025 (1.005-1.030); UROBILINOGEN 0.2 E.U./dl (0.2-1.0)
[2018-01-30 00:17] LABS: BACTERIA TRACE
[2018-01-30 06:28] LABS: CREATININE 1.64 mg/dL (0.70-1.30); PHOSPHOROUS 3.9 mg/dL (2.5-4.9)
[2018-01-30 06:37] LABS: HEMATOCRIT 25.3 % (42.0-52.0); HEMOGLOBIN 7.7 g/dl (14.0-18.0); MEAN CELL VOLUME 82.7 fl (80.0-94.0); MEAN CORPUSCULAR HGB 25.2 pg (27.0-31.0); MEAN CORPUSCULAR HGB CONC 30.4 g/dl (33.0-37.0); MEAN PLATELET VOLUME 10.9 fl (9.6-12.3); RED BLOOD COUNT 3.06 10*6/uL (4.50-5.90); WHITE BLOOD COUNT 15.1 10*3/uL (4.8-10.8)
[2018-01-30 06:39] LABS: POTASSIUM 6.9 mmol/L (3.5-5.1)
[2018-01-30 06:41] LABS: PLATELET COUNT AUTOMATED 296 10*3/uL (130-400)
[2018-01-30 07:05] LABS: PLATELET SUFFICIENCY NORMAL (NORMAL); ROULEAUX MODERATE; TOTAL CELLS COUNTED 100 #CELLS
[2018-01-30 08:00] VITALS: BP 122/50
[2018-01-30 08:28] LABS: CREATININE 1.59 mg/dL (0.70-1.30)
[2018-01-30 08:34] LABS: POTASSIUM 6.5 mmol/L (3.5-5.1)
[2018-01-30 12:00] VITALS: BP 128/56
[2018-01-30 16:00] VITALS: BP 111/50
[2018-01-30 20:00] VITALS: BP 128/53
[2018-01-31] VITALS (13 sets, daily range): BP systolic 103–158; BP diastolic 46–101
[2018-01-31 06:10] LABS: HEMATOCRIT 24.5 % (42.0-52.0); HEMOGLOBIN 7.3 g/dl (14.0-18.0); MEAN CELL VOLUME 82.5 fl (80.0-94.0); MEAN CORPUSCULAR HGB 24.6 pg (27.0-31.0); MEAN CORPUSCULAR HGB CONC 29.8 g/dl (33.0-37.0); MEAN PLATELET VOLUME 9.7 fl (9.6-12.3); RED BLOOD COUNT 2.97 10*6/uL (4.50-5.90); RED CELL DISTRI WIDTH 14.9 % (0-14.5); WHITE BLOOD COUNT 6.9 10*3/uL (4.8-10.8)
[2018-01-31 06:13] LABS: PLATELET COUNT AUTOMATED 200 10*3/uL (130-400)
[2018-01-31 06:25] LABS: ALBUMIN 2.1 gm/dl (3.1-4.5); ALKALINE PHOSPHATASE 107 U/L (45-117); BUN 36 mg/dl (7-24); CHLORIDE 104 mmol/L (98-107); CREATININE 1.01 mg/dL (0.70-1.30); LDH 560 U/L (87-241); SGOT/AST 46 IU/L (3-35); SGPT/ALT 26 U/L (12-78); SODIUM 137 mmol/L (136-145); TOTAL PROTEIN 7.4 gm/dL (6.4-8.2); URIC ACID 6.4 mg/dL (3.5-7.2)
[2018-01-31 06:27] LABS: POTASSIUM 4.9 mmol/L (3.5-5.1)
[2018-01-31 07:30] LABS: PLATELET SUFFICIENCY NORMAL (NORMAL); ROULEAUX MODERATE; TOTAL CELLS COUNTED 100 #CELLS
[2018-01-31 17:12] LABS: HEMATOCRIT 27.1 % (42.0-52.0); HEMOGLOBIN 8.4 g/dl (14.0-18.0)
[2018-02-01] VITALS: BP 119/52
[2018-02-01 06:53] LABS: HEMATOCRIT 26.3 % (42.0-52.0); HEMOGLOBIN 8.1 g/dl (14.0-18.0); MEAN CELL VOLUME 81.9 fl (80.0-94.0); MEAN CORPUSCULAR HGB 25.2 pg (27.0-31.0); MEAN CORPUSCULAR HGB CONC 30.8 g/dl (33.0-37.0); RED BLOOD COUNT 3.21 10*6/uL (4.50-5.90); RED CELL DISTRI WIDTH 14.7 % (0-14.5)
[2018-02-01 06:55] LABS: MEAN PLATELET VOLUME 9.8 fl (9.6-12.3); PLATELET COUNT AUTOMATED 162 10*3/uL (130-400)
[2018-02-01 07:08] LABS: CHLORIDE 103 mmol/L (98-107); CREATININE 0.73 mg/dL (0.70-1.30); PHOSPHOROUS 1.9 mg/dL (2.5-4.9); POTASSIUM 4.3 mmol/L (3.5-5.1); SODIUM 138 mmol/L (136-145)
[2018-02-01 07:26] LABS: BUN 24 mg/dl (7-24)
[2018-02-01 07:41] LABS: PLATELET SUFFICIENCY NORMAL (NORMAL); TOTAL CELLS COUNTED 50 #CELLS
[2018-02-01 07:42] LABS: POLYCHROMASIA SLIGHT; ROULEAUX MODERATE
[2018-02-01 07:43] LABS: WHITE BLOOD COUNT 1.1 10*3/uL (4.8-10.8)
[2018-02-01 08:00] VITALS: BP 115/58
[2018-02-01 12:00] VITALS: BP 127/53
[2018-02-01 16:00] VITALS: BP 132/55
[2018-02-01 20:00] VITALS: BP 90/62
[2018-02-01 21:42] VITALS: BP 101/56
[2018-02-02] VITALS (9 sets, daily range): BP systolic 96–118; BP diastolic 45–69
[2018-02-02 06:39] LABS: HEMATOCRIT 27.1 % (42.0-52.0); HEMOGLOBIN 8.1 g/dl (14.0-18.0); MEAN CELL VOLUME 83.1 fl (80.0-94.0); MEAN CORPUSCULAR HGB 24.8 pg (27.0-31.0); MEAN CORPUSCULAR HGB CONC 29.9 g/dl (33.0-37.0); RED BLOOD COUNT 3.26 10*6/uL (4.50-5.90); RED CELL DISTRI WIDTH 14.8 % (0-14.5)
[2018-02-02 06:43] LABS: MEAN PLATELET VOLUME 10.5 fl (9.6-12.3); PLATELET COUNT AUTOMATED 124 10*3/uL (130-400)
[2018-02-02 07:01] LABS: ALBUMIN 1.9 gm/dl (3.1-4.5); BUN 22 mg/dl (7-24); CHLORIDE 105 mmol/L (98-107); SODIUM 139 mmol/L (136-145)
[2018-02-02 07:04] LABS: ALKALINE PHOSPHATASE 97 U/L (45-117); CREATININE 0.69 mg/dL (0.70-1.30); SGOT/AST 21 IU/L (3-35); SGPT/ALT 23 U/L (12-78); TOTAL PROTEIN 7.2 gm/dL (6.4-8.2)
[2018-02-02 07:27] LABS: BASOPHILS 4 % (0-1); PLATELET SUFFICIENCY LOW (NORMAL); POLYCHROMASIA SLIGHT; ROULEAUX MODERATE; TOTAL CELLS COUNTED 50 #CELLS
[2018-02-02 07:30] LABS: WHITE BLOOD COUNT 0.5 10*3/uL (4.8-10.8)
[2018-02-03 01:59] VITALS: BP 115/60
[2018-02-03 06:25] LABS: BUN 19 mg/dl (7-24); CHLORIDE 105 mmol/L (98-107); CREATININE 0.77 mg/dL (0.70-1.30); POTASSIUM 3.8 mmol/L (3.5-5.1); SODIUM 140 mmol/L (136-145)
[2018-02-03 06:28] LABS: HEMATOCRIT 30.7 % (42.0-52.0); HEMOGLOBIN 9.3 g/dl (14.0-18.0); MEAN CELL VOLUME 84.1 fl (80.0-94.0); MEAN CORPUSCULAR HGB 25.5 pg (27.0-31.0); MEAN CORPUSCULAR HGB CONC 30.3 g/dl (33.0-37.0); RED BLOOD COUNT 3.65 10*6/uL (4.50-5.90); RED CELL DISTRI WIDTH 14.6 % (0-14.5)
[2018-02-03 07:17] LABS: MEAN PLATELET VOLUME 10.4 fl (9.6-12.3); PLATELET COUNT AUTOMATED 106 10*3/uL (130-400)
[2018-02-03 08:00] VITALS: BP 129/55
[2018-02-03 08:08] LABS: BASOPHILS 2 % (0-1); PLATELET SUFFICIENCY LOW (NORMAL); TOTAL CELLS COUNTED 50 #CELLS
[2018-02-03 08:09] LABS: ROULEAUX MODERATE
[2018-02-03 08:11] LABS: WHITE BLOOD COUNT 0.9 10*3/uL (4.8-10.8)
[2018-02-03 12:00] VITALS: BP 120/56
[2018-02-03 16:00] VITALS: BP 104/54
[2018-02-08] MEDS ORDERED: KADIAN10 M1 PO (10:53)
[2018-02-08] MEDS ORDERED: OXYCONTIN10 M1 PO (10:53)
[2018-02-08] MEDS ORDERED: Zofran4 MG SL (10:53)
== END 2018-02-03 17:28 | disposition hospice, home (50) | DRG 871 ==
LOC: ED 14:55 → 4E 17:20 → EDHOLD 17:20 → 4E 17:49
PROVIDERS: Emergency Medicine; Internal Medicine; Internal Medicine Critical Care Medicine; Registered Nurse; Student in an Organized Health Care Education/Training Program
DX: A41.9 Sepsis, unspecified organism (principal); J18.1 Lobar pneumonia, unspecified organism; D61.810 Antineoplastic chemotherapy induced pancytopenia; E43 Unspecified severe protein-calorie malnutrition; J96.21 Acute and chronic respiratory failure with hypoxia; N17.9 Acute kidney failure, unspecified; E87.2 Acidosis; C78.00 Secondary malignant neoplasm of unspecified lung; E87.1 Hypo-osmolality and hyponatremia; J44.0 Chronic obstructive pulmonary disease with (acute) lower respiratory infection; B37.0 Candidal stomatitis; E87.5 Hyperkalemia; E11.65 Type 2 diabetes mellitus with hyperglycemia; Z66 Do not resuscitate; Z51.5 Encounter for palliative care; J02.9 Acute pharyngitis, unspecified; N18.2 Chronic kidney disease, stage 2 (mild); E11.22 Type 2 diabetes mellitus with diabetic chronic kidney disease; G47.33 Obstructive sleep apnea (adult) (pediatric); K59.00 Constipation, unspecified; I25.10 Atherosclerotic heart disease of native coronary artery without angina pectoris; T45.1X5A Adverse effect of antineoplastic and immunosuppressive drugs, initial encounter; E83.39 Other disorders of phosphorus metabolism; E83.41 Hypermagnesemia; M94.0 Chondrocostal junction syndrome [Tietze]; I48.91 Unspecified atrial fibrillation; E86.0 Dehydration; R65.20 Severe sepsis without septic shock; Z68.28 Body mass index [BMI] 28.0-28.9, adult; Z85.118 Personal history of other malignant neoplasm of bronchus and lung; I25.2 Old myocardial infarction; Z87.891 Personal history of nicotine dependence; Y92.89 Other specified places as the place of occurrence of the external cause; Z79.01 Long term (current) use of anticoagulants; Z79.84 Long term (current) use of oral hypoglycemic drugs; Z79.899 Other long term (current) drug therapy; Z80.1 Family history of malignant neoplasm of trachea, bronchus and lung; Z82.49 Family history of ischemic heart disease and other diseases of the circulatory system